=== PATIENT | female | born 1945 | race Caucasian/White ===

== ENCOUNTER → 2016-09-15 | Outpatient (CLI) | payer OTHER ==
[~2016-09-15] VITALS: Ht 149.9 cm; Wt 67.0 kg
[~2016-09-15] MED LIST: ASPIR 8181 M1 PO; BIOTIN300 MCG PO; CALTRATE 6001 TABLET PO; CARTIA XT120 MG PO; CRESTOR10 MG PO; DICLOFENAC SOD100 MG PO; HYZAAR 100-21 TABLET PO; LANOXIN250 MCG PO; LO-DOSE ASPIRIN81 M1 PO; LOPID600 MG PO; Lopressor PO; METOPROLOL TART25 MG PO; NIACIN 500 MG1 EACH PO; NORVASC10 MG PO; Nitrostat,NitroQuick SL; OMEPRAZOLE10 M1 PO; ONE DAILY WOME1 EAC1 PO; PANTOPRAZOLE SO40 MG PO; PRESERVISION T1 EACH PO; Plavix PO; Pravachol PO; SODIUM CHLORIDE15 M2 BOTH EYES; SYSTANE ULTRA 015 ML BOTH EYES; VITAMIN D31000 UNI2 PO; ZANTAC150 MG PO
[2016-09-15 09:22] VITALS: BP 176/79
== END | disposition home or self-care (01) ==
LOC: IVINF 08-15 10:00
DX: M85.80 Other specified disorders of bone density and structure, unspecified site (principal)
CPT/HCPCS: 96365; J3489

== ENCOUNTER → 2017-10-21 | Outpatient (CLI) | payer OTHER ==
[~2017-10-21] VITALS: Ht 149.9 cm; Wt 73.0 kg
[2017-10-21 07:41] VITALS: BP 185/75
== END | disposition home or self-care (01) ==
LOC: IVINF 07:31
DX: M85.80 Other specified disorders of bone density and structure, unspecified site (principal)
CPT/HCPCS: 96365; J3489